=== PATIENT | female | born 1990 | race Caucasian/White ===

== ENCOUNTER → 2017-07-21 | Day surgery (SDC) | payer BC ==
--- NOTE | 2017-07-21 14:52 | RADIOLOGY REPORT (SQ) ---
EXAM DESCRIPTION: ARTHRO HIP INJ W/ANESTHESIA; FLUORO/NEEDLE PLACEMENT COMPLETED DATE/TIME: 07/21/2017 1:34 pm REASON FOR STUDY: PAIN IN LEFT HIP (M25.552) M25.552 PAIN IN LEFT HIP COMPARISON: None. FLUOROSCOPY TIME: 10 seconds. 1 images saved to PACS. LIMITATIONS: None. PROCEDURE: Procedure, risks, benefits and alternatives explained to patient who then gave written c onsent. The left hip was marked and a time-out was called for correct marking verification. Entry s ite marked using fluoroscopic guidance. Hip prepped and draped using sterile technique. Local anes thesia achieved using 1% lidocaine injection. Hypodermic needle introduced into the joint space und er direct fluoroscopic visualization. Non-ionic contrast instilled to confirm intra-articular positi on. Dilute gadolinium solution then injected. Needle removed and entry site covered with sterile b andage. No immediate complications noted. TECHNIQUE: Digital images acquired during fluoroscopy and stored on PACS. Patient immediately take n to the MR suite for additional imaging. INJECTION LOCATION: Left hip. CONTRAST TYPE AND AMOUNT: 1 mL Isovue-300 and 6 mL ProHance saline mixture. IMPRESSION: SUCCESSFUL NEEDLE PLACEMENT AND INJECTION FOR LEFT HIP MR ARTHROGRAM. COMMENT: Quality ID [id number]: Final reports for procedures using fluoroscopy that document radiation exp osure indices, or exposure time and number of fluorographic images (if radiation exposure indices are not available) TECHNICAL DOCUMENTATION: JOB ID: [id number] [employer]- All Rights Reserved
--- NOTE | 2017-07-21 16:00 | RADIOLOGY REPORT (SQ) ---
EXAM DESCRIPTION: MRI LT LOWER JOINT WITH COMPLETED DATE/TIME: 07/21/2017 2:22 pm REASON FOR STUDY: PAIN IN LEFT HIP (M25.552) M25.552 PAIN IN LEFT HIP COMPARISON: None. TECHNIQUE: Post arthrogram imaging is performed using T1 and T1 and T2 fat saturated sequences of th e pelvis and specific hip of interest. LIMITATIONS: None. FINDINGS: JOINT DISTENSION: Adequate. No loose body. BONE MARROW: No edema. No marrow replacement. FEMORAL HEAD, NECK, AND ACETABULUM: No occult fracture. No osteophytes or subchondral cysts. Normal s phericity of femoral head/neck junction. No acetabular dysplasia. No evidence of femoroacetabular imp ingement. PUBIC RAMI AND ISCHIUM: No occult fracture. SACRUM AND YURY: SI joints normal in signal. No occult fracture. EFFUSIONS: None. LABRUM AND CARTILAGE: Small superolateral labral tear on the left without delamination. No focal car tilaginous loss. MUSCLES AND SOFT TISSUES: Adductors and piriformis normal. Abductors and greater trochanteric bursa n ormal without edema or fluid. Iliopsoas bursa without fluid. Hamstring attachments without edema or t ear. PELVIC SOFT TISSUES: No masses or adenopathy. SCIATIC NERVE: Identified without masses. OTHER: No other significant finding. IMPRESSION: Small superolateral left labral tear without cartilaginous loss for delamination. TECHNICAL DOCUMENTATION: JOB ID: [id number] [employer]- All Rights Reserved
== END ==
LOC: RAD 12:43
PROVIDERS: ATTEND Orthopaedic Surgery
PROC: BQ01ZZZ Plain Radiography of Left Hip (ICD-10-PCS; principal; 2017-07-21)
DX: M25.552 Pain in left hip (principal)
CPT/HCPCS: 73722; 77002; 27095; A9576

== ENCOUNTER 2018-11-24 01:58 | Emergency (ER) | payer BC, MEDICAID ==
[2018-11-24] MEDS ORDERED: IPRATROPIUM/ALBUTEROL 0.5-2.5 MG/3 ML AMPUL NEB ONE (02:42)
[2018-11-24] MEDS ORDERED: PREDNISONE 20 MG TABLET PO ONE (02:42)
--- NOTE | 2018-11-24 02:43 | ER Document Report ---
ED Medical Screen (RME) - General Chief Complaint: Congestion Stated Complaint: CONGESTION,ASTHMA,DIFFICULTY BREATHING,HEADACHE Time Seen by Provider: 11/24/18 02:41 Primary Care Provider: NAHID CULVER MD [Primary Care Provider] - Follow up as needed Notes: 28-year-old female with a history of asthma, chief complaint of congestion, cough, developing wheezing over the past couple of days. Her albuterol ne bulizer at home has not really helped. She denies fever. She denies chest pain. TRAVEL OUTSIDE OF THE [place] IN LAST 30 DAYS: No - Related Data Allergies/Adverse Reactions: clarithromycin [From Biaxin] Allergy (Verified 08/03/13 11:46) corn [[place]] Allergy (Verified 08/03/13 12:09) dicyclomine HCl [From Bentyl] Allergy (Verified 08/03/13 12:09) escitalopram oxalate [From Lexapro] Allergy (Verified 08/03/13 12:09) guaifenesin [From Mucinex] Allergy (Verified 08/03/13 11:46) ketorolac tromethamine [From Toradol] Allergy (Verified 08/03/13 11:46) meperidine HCl [From Demerol] Allergy (Verified 08/03/13 11:46) morphine [Morphine] Allergy (Verified 08/03/13 11:46) nalbuphine HCl [From Nubain] Allergy (Verified 08/03/13 12:09) ondansetron HCl [From Zofran] Allergy (Verified 08/03/13 11:46) wheat [Wheat] Allergy (Verified 08/03/13 11:46) chamomile Allergy (Uncoded 08/03/13 11:46) echinecea Allergy (Uncoded 08/03/13 11:46) riddle seal Allergy (Uncoded 08/03/13 11:46) nuts Allergy (Uncoded 08/03/13 11:46) peanuts Allergy (Uncoded 08/03/13 11:46) grace Allergy (Uncoded 08/03/13 11:46) Past Medical History - Past Medical History Cardiac Medical History: Denies: Hx Coronary Artery Disease, Hx Heart Attack, Hx Hypertension Pulmonary Medical History: Reports: Hx Asthma - rescue inhaler >6months ago Denies: Hx Bronchitis, Hx COPD, Hx Pneumonia Neurological Medical History: Denies: Hx Cerebrovascular Accident, Hx Seizures Renal/ Medical History: Denies: Hx Peritoneal Dialysis Musculoskeltal Medical History: Denies Hx Arthritis Past Surgical History: Reports: Hx Appendectomy, Hx Bowel Surgery - 2 bowel obstructions - Immunizations Hx Diphtheria, Pertussis, Tetanus Vaccination: Yes Physical Exam - Vital signs Vitals: Temp Pulse Resp BP Pulse Ox 98.2 F 87 26 H 153/86 H 97 11/24/18 02:02 11/24/18 02:02 11/24/18 02:02 11/24/18 02:02 11/24/18 02:02 - Respiratory Respiratory status: No: Respiratory distress, Labored Breath sounds: Wheezing - Faint expiratory wheezes on the right, unremarkable otherwise with clear lung sounds Course - Re-evaluation Re-evalutation: I have greeted and performed a rapid initial assessment of this patient. A comprehensive ED assessment and evaluation of the patient, analysis of test results and completion of the medical decision making process will be conducted by additional ED providers. - Vital Signs Vital signs: Temp Pulse Resp BP Pulse Ox 98.2 F 87 26 H 153/86 H 97 11/24/18 02:02 11/24/18 02:02 11/24/18 02:02 11/24/18 02:02 11/24/18 02:02 Doctor's Discharge - Discharge Referrals: NAHID CULVER MD [Primary Care Provider] - Follow up as needed
[2018-11-24] MEDS ORDERED: ALBUTEROL SULFATE HFA (90 MCG/PUFF) 8 GM MDI (1 MDI/ER DISP) IH ONE (03:30)
--- NOTE | 2018-11-24 03:41 | ER Document Report ---
ED Respiratory Problem - General Chief Complaint: Congestion Stated Complaint: CONGESTION,ASTHMA,DIFFICULTY BREATHING,HEADACHE Time Seen by Provider: 11/24/18 02:41 Primary Care Provider: NAHID CULVER MD [NO LOCAL MD] - Follow up as needed Notes: Patient is a 28-year-old female with a history of asthma, chief complaint of congestion, cough, developing wheezing over the past couple of days. She denies fever. She denies chest pain. Her albuterol nebulizer at home has not really helped. Patient states she has also started an antihistamine, taking Sudafed, and used a neti pot. She denies any medical history otherwise. TRAVEL OUTSIDE OF THE [place] IN LAST 30 DAYS: No - Related Data Allergies/Adverse Reactions: clarithromycin [From Biaxin] Allergy (Verified 08/03/13 11:46) corn [[place]] Allergy (Verified 08/03/13 12:09) dicyclomine HCl [From Bentyl] Allergy (Verified 08/03/13 12:09) escitalopram oxalate [From Lexapro] Allergy (Verified 08/03/13 12:09) guaifenesin [From Mucinex] Allergy (Verified 08/03/13 11:46) ketorolac tromethamine [From Toradol] Allergy (Verified 08/03/13 11:46) meperidine HCl [From Demerol] Allergy (Verified 08/03/13 11:46) morphine [Morphine] Allergy (Verified 08/03/13 11:46) nalbuphine HCl [From Nubain] Allergy (Verified 08/03/13 12:09) ondansetron HCl [From Zofran] Allergy (Verified 08/03/13 11:46) wheat [Wheat] Allergy (Verified 08/03/13 11:46) chamomile Allergy (Uncoded 08/03/13 11:46) echinecea Allergy (Uncoded 08/03/13 11:46) riddle seal Allergy (Uncoded 08/03/13 11:46) nuts Allergy (Uncoded 08/03/13 11:46) peanuts Allergy (Uncoded 08/03/13 11:46) grace Allergy (Uncoded 08/03/13 11:46) Past Medical History - General Information source: Patient - Social History Smoking Status: Never Smoker Frequency of alcohol use: None Drug Abuse: None Lives with: Family Family History: Reviewed & Not Pertinent Patient has suicidal ideation: No Patient has homicidal ideation: No - Past Medical History Cardiac Medical History: Denies: Hx Coronary Artery Disease, Hx Heart Attack, Hx Hypertension Pulmonary Medical History: Reports: Hx Asthma Denies: Hx Bronchitis, Hx COPD, Hx Pneumonia Neurological Medical History: Denies: Hx Cerebrovascular Accident, Hx Seizures Renal/ Medical History: Denies: Hx Peritoneal Dialysis Musculoskeletal Medical History: Denies Hx Arthritis Past Surgical History: Reports: Hx Appendectomy, Hx Bowel Surgery - 2 bowel obstructions - Immunizations Hx Diphtheria, Pertussis, Tetanus Vaccination: Yes Hx Pneumococcal Vaccination: 08/15/04 Review of Systems - Review of Systems Constitutional: No symptoms reported EENT: See HPI Cardiovascular: No symptoms reported Respiratory: See HPI Gastrointestinal: No symptoms reported Genitourinary: No symptoms reported Female Genitourinary: No symptoms reported Musculoskeletal: No symptoms reported Skin: No symptoms reported Hematologic/Lymphatic: No symptoms reported Neurological/Psychological: No symptoms reported Physical Exam - Vital signs Vitals: Temp Pulse Resp BP Pulse Ox 98.2 F 87 26 H 153/86 H 97 11/24/18 02:02 11/24/18 02:02 11/24/18 02:02 11/24/18 02:02 11/24/18 02:02 - Notes Notes: GENERAL: Alert, interacts well. No acute distress. HEAD: Normocephalic, atraumatic. EYES: Pupils equal, round, and reactive to light. Extraocular movements intact. ENT: Oral mucosa moist, tongue midline. Oropharynx unremarkable. Airway patent. Some congestion of the nasal passages, nontender sinuses,, no nasal septal hematoma, TM's intact. NECK: Full range of motion. Supple. Trachea midline. LUNGS: Slight expiratory wheezes, however good lung sounds, no tachypnea, no respiratory distress. HEART: Regular rate and rhythm. No murmur ABDOMEN: Soft, non-tender. Non-distended. Bowel sounds present in all 4 quadrants. GENITOURINARY: Deferred EXTREMITIES: Moves all 4 extremities spontaneously. No edema, normal radial and dorsalis pedis pulses bilaterally. No cyanosis. BACK: no cervical, thoracic, lumbar midline tenderness. No saddle anesthesia, normal distal neurovascular exam. NEUROLOGICAL: Alert and oriented x3. Normal speech. [cranial nerves II through XII grossly intact]. PSYCH: Normal affect, normal mood. SKIN: Warm, dry, normal turgor. No rashes or lesions noted. Course - Re-evaluation Re-evalutation: After DuoNeb patient's wheezes resolved. No hypoxia or respiratory distress. Patient has sinus congestion but otherwise her examination is unremarkable. No fever. Appears to be allergic in nature based on reported symptoms. Patient placed on prednisone, provided with inhaler, spacer. Discussed follow-up and return precautions. Patient states satisfaction and agreement with plan. - Vital Signs Vital signs: Temp Pulse Resp BP Pulse Ox 98.2 F 89 16 130/72 H 97 11/24/18 02:02 11/24/18 03:54 11/24/18 03:54 11/24/18 03:54 11/24/18 03:54 Discharge - Discharge Clinical Impression: Wheezing, Sinus congestion Asthma exacerbation Qualifiers: Asthma severity: mild Asthma persistence: intermittent Qualified Code(s): J45.21 - Mild intermittent asthma with (acute) exacerbation Condition: Stable Disposition: HOME, SELF-CARE Additional Instructions: Your evaluation shows an asthma exacerbation, congestion most likely from allergic factors. Recommendation is to take the Keysha as prescribed, prednisone as prescribed, albuterol. Continue home remedies. Follow-up with primary care. Return if you worsen including fever, difficulty breathing, or any other concerning or worsening symptoms. Prescriptions: RX: Albuterol Sulfate [Proair HFA Inhalation Aerosol 8.5 gm MDI] 2 puff IH Q4H PRN #1 mdi PRN Reason: Fexofenadine HCl [Keysha Allergy] 180 mg PO DAILY #30 tablet RX: Prednisone [Deltasone 20 mg Tablet] 3 tab PO DAILY 5 Days #15 tablet Referrals: NAHID CULVER MD [NO LOCAL MD] - Follow up as needed
[2018-11-24 03:55] VITALS: BP 130/72
== END 2018-11-24 03:55 | disposition home or self-care (01) ==
LOC: ER 01:58
DX: J45.21 Mild intermittent asthma with (acute) exacerbation (principal); R68.89 Other general symptoms and signs; R05 Cough; Z88.3 Allergy status to other anti-infective agents; Z88.6 Allergy status to analgesic agent; Z91.010 Allergy to peanuts
CPT/HCPCS: 94640; 99283; J7512; J3490; J7620